=== PATIENT | male | born 1955 | race Caucasian/White ===

== ENCOUNTER 2017-04-01 06:03 | Emergency (ER) | payer OTHER ==
[~2017-04-01] VITALS: Ht 182.9 cm; Wt 65.8 kg
[2017-04-01] MEDS ORDERED: PRINIVIL20 MG PO (06:11)
[2017-04-01] MEDS ORDERED: CITALOPRAM HBR40 MG PO (06:12)
[2017-04-01] MEDS ORDERED: LOVASTAT20 PO (06:13)
[2017-04-01] MEDS ORDERED: AMLODIPINE BESY10 MG PO (06:13)
[2017-04-01] MEDS ORDERED: LOPRESSOR100 M1 PO (06:14)
[2017-04-01] MEDS ORDERED: OXYCODONE HCL 55 MG PO (07:19)
[2017-04-01] MEDS ORDERED: PREDNISONE 20 M20 MG PO (07:19)
[2017-04-01 07:45] VITALS: BP 139/66
== END 2017-04-01 07:46 | disposition home or self-care (01) ==
LOC: ER 06:03
DX: M54.5 Low back pain (principal); G89.29 Other chronic pain; F17.200 Nicotine dependence, unspecified, uncomplicated; Z86.73 Personal history of transient ischemic attack (TIA), and cerebral infarction without residual deficits; Z88.5 Allergy status to narcotic agent